=== PATIENT | male | born 1985 | race Two or more races ===

== ENCOUNTER 2023-04-26 15:08 | Outpatient (CLI) | payer OTHER, SELFPAY | END 2023-04-26 15:09 | disposition home or self-care (01) | PROVIDERS: PCP Family Medicine; Visit Provider Family Medicine | DX: E11.9 Type 2 diabetes mellitus without complications (principal); Z13.220 Encounter for screening for lipoid disorders | CPT/HCPCS: 80053; 80061; 82043; 82570 ==

== ENCOUNTER 2023-11-16 08:16 | Outpatient (CLI) | payer OTHER, SELFPAY | END 2023-11-16 08:17 | disposition home or self-care (01) | LOC: NFLDREF 11-18 02:56 | PROVIDERS: PCP Family Medicine; Referring Provider Family Medicine; Visit Provider Family Medicine | DX: Z00.00 Encounter for general adult medical examination without abnormal findings (principal); E11.9 Type 2 diabetes mellitus without complications | CPT/HCPCS: 80061 ==

== ENCOUNTER 2024-10-16 08:59 | Outpatient (CLI) | payer OTHER, SELFPAY | END 2024-10-16 09:00 | disposition home or self-care (01) | LOC: LKVREF 09:00 | PROVIDERS: PCP Family Medicine; Visit Provider Family Medicine | DX: Z00.00 Encounter for general adult medical examination without abnormal findings (principal); E11.9 Type 2 diabetes mellitus without complications | CPT/HCPCS: 80053; 80061; 82043; 82570 ==